=== PATIENT | male | born 1945 | race Caucasian/White ===

== ENCOUNTER 2019-07-09 13:00 | Emergency (ER) | payer OTHER ==
[~2019-07-09] VITALS: Ht 182.9 cm; Wt 88.5 kg
[~2019-07-09 13:00] MED LIST: ASPIRIN81 M2 PO; BENICAR 5 MG5 MG; BENICAR HCT 201 EACH PO; BENICAR20 MG PO; CHANTIX1 MG; COUMADIN 5 MG TA5 M1 PO; FISH OIL 1,0001 EAC5 PO; MUCINEX600 MG PO; MULTAQ 400 MG400 MG PO; MULTAQ400 MG PO; PACERONE 200 M200 M1 PO; VYTORIN 10-101 EACH; VYTORIN 10-401 EACH PO
[2019-07-09 13:01] VITALS: BP 174/88
[2019-07-09] MEDS ORDERED: ROSUVASTATIN CA10 MG PO (13:12)
[2019-07-09] MEDS ORDERED: FLONASE 0.05%50 MCG NARES (13:13)
[2019-07-09] MEDS ORDERED: PROAIR HFA8.5 GM INH (13:13)
[2019-07-09 13:29] LABS: ABSOLUTE NEUTROPHILS 3.3 thou/uL (1.4-8.2); HEMOGLOBIN 14.1 gm/dL (14.0-18.0); LYMPHOCYTES 32.1 % (24.0-44.0); MCH 32.2 pg (26.0-34.0); MCHC 33.6 g/dL (28.0-37.0); MCV 95.8 fL (80.0-100.0); MONOCYTES 10.3 % (1.0-8.0); PLATELET COUNT 209 thou/uL (150-400); POLYS 53.6 % (36.0-66.0); RBC 4.38 mil/uL (4.50-6.00); RDW 15.9 % (10.5-14.5); WBC 6.2 thou/uL (4.0-11.0)
[2019-07-09 14:04] LABS: PROTIME 33.5 Seconds (9.3-11.4)
[2019-07-09 14:05] LABS: INR 3.3
[2019-07-09 14:21] LABS: CALCIUM 8.8 mg/dL (8.5-10.1); CREATININE 0.9 mg/dL (0.7-1.3); POTASSIUM 3.9 mmol/L (3.5-5.1)
[2019-07-09 14:26] LABS: ALBUMIN 3.2 g/dL (3.4-5.0); TOTAL BILIRUBIN 0.4 mg/dL (<0.1-1.0); TOTAL PROTEIN 6.7 g/dL (6.4-8.2)
[2019-07-09 14:50] VITALS: BP 156/84
[2019-07-09 14:58] VITALS: BP 168/93
--- NOTE | 2019-08-02 11:44 | EKG ---
[facility] [place] [address] ELECTROCARDIOGRAM REPORT Name: HELEN DURHAM CLEMENTE [id number] Admission: 07/09/19 Attend Phys: Discharge: 07/09/19 Date of : 45 Report #: [id number] THIS REPORT FOR: cc: Kenroy Flaherty MD, Neal A. MD Lundgren,Tawanda Segal MD [facility] THIS REPORT FOR: //name// [facility] ED Test Date: 2019-07-09 Test Time: 13:00:21 Pat Name: HELEN DURHAM Department: Room: [facility] Gender: M Turner Machine: DAREN : 1945 Requested By: Cynthia Pandya Order Number: [id number] MD: Tawanda Husain Measurements Intervals [place] Rate: 55 P: 57 ND: 169 QRS: 45 QRSD: 90 T: 62 QT: 494 QTc: 473 Interpretive Statements Sinus bradycardia Nonspecific ST segment abnormality Compared to ECG 04/11/2012 13:17:05 Atrial fibrillation no longer present Electronically Signed On 07-09-2019 14:31:10 CDT by Tawanda Husain [email or web address] <ELECTRONICALLY SIGNED> By: Tawanda Husain MD, FAC 07/09/19 1431 1300 1300 Tawanda Husain MD, [facility] /EPI
--- NOTE | 2019-08-05 08:36 | HC ---
[facility] [place] [address] CONSULTATION Name: HELEN DURHAM Room #: DEP Leslie#: [id number] Admission: 07/09/19 Attend Phys: Discharge: 07/09/19 Date of : 45 Report #: [id number] THIS REPORT FOR: cc: Kenroy Flaherty MD, Neal A. MD Mancuso, Gerald M. MD [facility] ~ CC: Kenroy Flaherty DATE OF SERVICE: 07/09/2019 Cardiology consult in the Emergency Room. HISTORY OF PRESENT ILLNESS: The patient is a 74-year-old male who was lost to my followup. He was last seen by my partner, Dr. Rivera for paroxysmal AFib at that time and has been anticoagulated. I placed an LAD stent in the patient 2002 and I last saw him in 2012. He had a 2.5 Cypher drug-eluting stent placed to his proximal LAD and 30-40% RCA lesions at that time. He was a long time tobacco user until 6 or 7 years ago. No stress testing in the last few years. He has not had cardiology attention since 2016. Dr. Flaherty has been following and actually treating him quite adequately. He has moderate carotid disease, also from a remote carotid Doppler. He has been maintained on aspirin, warfarin, rosuvastatin, amiodarone, olmesartan. PAST MEDICAL HISTORY: Positive for the coronary artery disease with stent to the LAD. This is predominant cardiac history and the paroxysmal AFib. He had some recurrent chest discomfort with left arm numbness today, was transient and short lived. He has had no other warning signs. No change in his exercise tolerance. He states he does exercise on a regular basis. There are no associated EKG changes and troponin is negative. LABORATORY DATA: Remainder of the laboratory work, potassium 3.9, creatinine 0.9. Troponin less than 0.06. H and H is 14 and 42. INR 3.3. SOCIAL HISTORY: He is retired. He is accompanied by his . Minimal alcohol, no tobacco, quit 7 years ago. PAST MEDICAL HISTORY: Positive for coronary artery disease, hypertension, hypercholesterolemia, paroxysmal atrial fibrillation, DJD, COPD, prior tobacco use, BPH. ALLERGIES: No known drug allergies. REVIEW OF SYSTEMS: Negative except for some nocturia. FAMILY HISTORY: Father had a bypass surgery. [facility] [address] [place] [address] CONSULTATION Name: HELEN DURHAM CLEMENTE Room #: DEP DEJAN Nelson#: [id number] Admission: 07/09/19 Attend Phys: Discharge: 07/09/19 Date of : 45 Report #: [id number] PHYSICAL EXAMINATION: GENERAL: Pleasant, alert. VITAL SIGNS: Blood pressure 136/70, pulse 60s. HEENT: Eyes reveal xanthelasmas. Pharynx is clear. NECK: Faint right-sided bruit, without JVD. LUNGS: Prolonged expiratory phase, but clear. CARDIOVASCULAR: Regular rate and rhythm, S1, S2, distant. ABDOMEN: Soft. No HSM or abdominal bruit. EXTREMITIES: Reveal no edema. Distal pulses were intact. NEUROLOGIC: Nonfocal. SKIN: Warm and dry without xanthoma or ulcer. MUSCULOSKELETAL: Generalized arthritic changes. ASSESSMENT: 1. Chest/arm pain, suspect noncardiac. 2. Coronary artery disease with history of LAD stent in 2002 and moderate RCA lesion have been following (no recent stress testing). 3. Hypertension. 4. Hypercholesterolemia. 5. Chronic obstructive pulmonary disease with a prior 50-year pack history, quit 7 years ago. 6. Paroxysmal atrial fibrillation. RECOMMENDATIONS AND PLAN: They ruled out nothing on the EKG. I am going to proceed this as an unstable angina, but does need stress testing. I have a nuclear stress test and an echo Doppler in the a.m. as an outpatient. If there is any recurrence of this, he is to come back to the Emergency Room. We would continue the current regimen. Risks, benefits, alternatives were discussed. I did discuss this with Dr. Flaherty and the Emergency Room. Thank you for asking me to assist in the care of this patient. <ELECTRONICALLY SIGNED> By: Garo Valiente MD, FACC 08/05/19 0836 [id number] 1528 Garo Valiente MD, FACC /nt
== END 2019-07-09 15:12 | disposition home or self-care (01) ==
LOC: ER 13:00 → EROBS 14:26 → 2N 14:50 → EROBS 14:50
PROVIDERS: Physician Assistant
DX: R07.89 Other chest pain (principal); I10 Essential (primary) hypertension; I48.91 Unspecified atrial fibrillation; Z86.73 Personal history of transient ischemic attack (TIA), and cerebral infarction without residual deficits; Z95.5 Presence of coronary angioplasty implant and graft

== ENCOUNTER → 2019-07-10 | Outpatient (CLI) | payer OTHER ==
[~2019-07-10] MED LIST changes: +FLONASE 0.05%50 MCG NARES; +PROAIR HFA8.5 GM INH; +ROSUVASTATIN CA10 MG PO
== END ==
LOC: SJCVCIMAG 08:16
PROVIDERS: ATTEND Internal Medicine Cardiovascular Disease
DX: I08.8 Other rheumatic multiple valve diseases (principal); I25.10 Atherosclerotic heart disease of native coronary artery without angina pectoris; I48.0 Paroxysmal atrial fibrillation; Z98.61 Coronary angioplasty status; Z86.73 Personal history of transient ischemic attack (TIA), and cerebral infarction without residual deficits